=== PATIENT | male | born 1960 | race Caucasian/White ===

== ENCOUNTER 2017-10-26 18:05 | Emergency (ER) | payer OTHER ==
--- NOTE | 2017-10-26 18:17 | EDM.PDOC ---
ED HPI GENERAL MEDICAL PROBLEM - General Chief Complaint: Laceration Stated Complaint: FOREHEAD BUST Time Seen by Provider: 10/26/17 18:13 Source of Information: Reports: Patient History Limitations: Reports: No Limitations - History of Present Illness INITIAL COMMENTS - FREE TEXT/NARRATIVE: HISTORY AND PHYSICAL: []57-year-old male presenting to the emergency department with a laceration to his forehead History of Present Illness: []Patient was turning a adalberto stand was hit in the head No loss of consciousness Does not remember when his last tetanus vaccine was given Review of Systems: As per history of present illness and below otherwise all systems reviewed and negative. Past medical history: As per history of present illness and as reviewed below otherwise noncontributory. Surgical history: As per history of present illness and as reviewed below otherwise noncontributory. Social history: No reported history of drug or alcohol abuse. Family history: As per history of present illness and as reviewed below otherwise noncontributory. Physical exam: Alert and oriented male answering questions appropriately in full sentences without shortness of breath. Nontoxic in appearance HEENT: Atraumatic, normocehpalic, pupils reactive, negative for conjunctival pallor or scleral icterus, mucous membranes moist, throat clear, neck supple, nontender, trachea midline. Lungs: Clear to auscultation, breath sounds equal bilaterally, chest non tender. Heart: S1S2, regular, negative for clicks, rubs, or JVD. Abdomen: Soft, nondistended, nontender. Negative for masses or hepatossplenmegaly. Negative for costovertebral tenderness. Pelvis: Stable nontender. Genitourinary: Deferred. Rectal: Deferred Extremities: Atraumatic, negative for cords or calf pain. Neurovascular unremarkable. Neuro: Awake, alert, oriented. Cranial nerves II through XII unremarkable. Cerebellum unremarkable. Motor and sensory unremarkable throughout. Exam nonfocal. Diagnostics: [] Therapeutics: [] Impression: []Laceration repair Plan: []Discharge home Sutures to be removed in 10 days Emergency room as directed and discussed Definitive disposition and diagnosis as appropriate pending reevaluation and review of above. Onset: Today, Sudden Duration: Minutes: Location: Reports: Face Quality: Reports: Stabbing Severity: Moderate Improves with: Reports: None Worsens with: Reports: None Associated Symptoms: Reports: No Other Symptoms Head Pain Score (Numeric/FACES): 5 - Related Data Allergies Allergy/AdvReac Type Severity Reaction Status Date / Time Penicillins Allergy Cannot Verified 10/26/17 18:12 Remember Home Meds: Home Meds . [No Known Home Meds] 10/26/17 [History] ED ROS GENERAL - Review of Systems Review Of Systems: ROS reveals no pertinent complaints other than HPI. ED EXAM, SKIN/RASH Exam: See Below (see dictation) ED SKIN PROCEDURES - Laceration/Wound Repair Left Lateral Brow Lac/Wound length In cm: 3 Appearance: Subcutaneous, Clean Distal NVT: Neuro & Vascular Intact, No Tendon Injury Anesthetic Type: Local Local Anesthesia - Lidocaine (Xylocaine): 1% Plain Local Anesthetic Volume: 5cc Skin Prep: Providone-Iodine (Betadine), Saline Exploration/Debridement/Repair: Wound Explored, Explored to Base Closed with: Sutures, Steri-Strips (1) Suture Size: other (5-0) Suture Type: Prolene, Simple Drain Placement: No Sterile Dressing Applied: Nurse Tetanus Status Addressed: Yes Complications: No Course - Vital Signs Last Recorded V/S: Last Vital Signs Temp 36.1 C 10/26/17 18:12 Pulse 98 10/26/17 18:12 Resp 16 10/26/17 18:12 BP 176/110 H 10/26/17 18:12 Pulse Ox 98 10/26/17 18:12 - Orders/Labs/Meds Orders: Active Orders 24 hr Category Date Time Status Vaccines to be Administered [RC] PER UNIT ROUTINE Care 10/26/17 18:19 Active Meds: Medications Discontinued Medications Generic Name Dose Route Start Last Admin Trade Name Yves PRN Reason Stop Dose Admin Diphtheria/Tetanus/Acell Pertussis 0.5 ml 10/26/17 18:18 10/26/17 18:27 Adacel IM 10/26/17 18:19 0.5 ml .ONCE ONE Administration Lidocaine HCl 10 ml 10/26/17 18:12 10/26/17 18:22 Xylocaine-Mpf 1% INJECT 10/26/17 18:13 10 ml ONETIME ONE Administration Departure - Departure Time of Disposition: 18:41 Disposition: Home, Self-Care 01 Condition: Good Clinical Impression: Laceration - Discharge Information *PRESCRIPTION DRUG MONITORING PROGRAM REVIEWED*: Not Applicable *COPY OF PRESCRIPTION DRUG MONITORING REPORT IN PATIENT ETHAN: Not Applicable Instructions: Laceration Care, Adult, [id number], Stitches, Yanci, or Adhesive Wound Closure, [id number] Forms: ED Department Discharge Additional Instructions: The following information is given to patients seen in the emergency department who are being discharged to home. This information is to outline your options for follow-up care. We provide all patients seen in our emergency department with a follow-up referral. The need for follow-up, as well as the timing and circumstances, are variable depending upon the specifics of your emergency department visit. If you don't have a primary care physician on staff, we will provide you with a referral. We always advise you to contact your personal physician following an emergency department visit to inform them of the circumstance of the visit and for follow-up with them and/or the need for any referrals to a consulting specialist. The emergency department will also refer you to a specialist when appropriate. This referral assures that you have the opportunity for followup care with a specialist. All of these measure are taken in an effort to provide you with optimal care, which includes your followup. Under all circumstances we always encourage you to contact your private physician who remains a resource for coordinating your care. When calling for followup care, please make the office aware that this follow-up is from your recent emergency room visit. If for any reason you are refused follow-up, please contact the [facility] emergency department at and asked to speak to the emergency department charge nurse. Discharge home Sutures to be removed in 10 days Emergency room as directed and discussed - My Orders Last 24 Hours: My Active Orders 10/26/17 18:19 Vaccines to be Administered [RC] PER UNIT ROUTINE - Assessment/Plan Last 24 Hours: My Active Orders 10/26/17 18:19 Vaccines to be Administered [RC] PER UNIT ROUTINE
[2017-10-26] MEDS ORDERED: Diphtheria,Pertussis(Acell),Tetanus Vaccine 0.5 ML Syringe IM ONE (18:18)
[2017-10-26] MEDS ORDERED: Bacitracin Oint 1 GM U/D Packet ONE (18:45)
== END 2017-10-26 19:02 | disposition home or self-care (01) ==
LOC: MW.ED 18:05
DX: S01.81XA Laceration without foreign body of other part of head, initial encounter (principal); Z88.0 Allergy status to penicillin; W22.8XXA Striking against or struck by other objects, initial encounter; Z23 Encounter for immunization
CPT/HCPCS: 90471; 90715; 99282-25